=== PATIENT | male | born 1965 | race American Indian/Alaskan Native ===

== ENCOUNTER 2019-11-01 12:28 | Emergency (ER) | payer BC ==
[2019-11-01 12:36] VITALS: BP 133/88
--- NOTE | 2019-11-01 17:06 | Emergency Department Report ---
- General Chief complaint: Skin/Abscess/Foreign Body Stated complaint: BOIL Time Seen by Provider: 11/01/19 15:12 Source: patient Mode of arrival: Ambulatory Limitations: No Limitations - History of Present Illness Initial comments: 54-year-old -[place] male history of diabetes presents emergency department complaining of a 10-year history of fluctuating of cystic mass to the back which occasionally gets infected requires incision and drainage. Reports no fever, chills, sweats the area has become tender over the last few days ports no nausea or vomiting. States that he was seen at an urgent care and advised to follow-up with a surgeon so he came to the emergency department for further guidance. MD complaint: insect bite/sting, abscess/boil -: Gradual Tetanus Up to Date: yes Location: back Severity: mild Consistency: constant Improves with: none Worsens with: palpation Context: none Treatments Prior to Arrival: none - Related Data Previous Rx's Medication Instructions Recorded Last Taken Type Ketorolac [Toradol] 10 mg PO Q6H PRN #15 tablet 11/01/19 Unknown Rx Sulfamethoxazole/Trimethoprim 1 each PO BID #20 tablet 11/01/19 Unknown Rx [Bactrim Ds] Allergies Allergy/AdvReac Type Severity Reaction Status Date / Time Penicillins Allergy Unknown Verified 11/01/19 12:31 Abscess Boil HPI - HPI Chief Complaint: Skin/Abscess/Foreign Body Stated Complaint: BOIL Time Seen by Provider: 11/01/19 15:12 Home Medications: Previous Rx's Medication Instructions Recorded Last Taken Type Ketorolac [Toradol] 10 mg PO Q6H PRN #15 tablet 11/01/19 Unknown Rx Sulfamethoxazole/Trimethoprim 1 each PO BID #20 tablet 11/01/19 Unknown Rx [Bactrim Ds] Allergies/Adverse Reactions: Allergies Allergy/AdvReac Type Severity Reaction Status Date / Time Penicillins Allergy Unknown Verified 11/01/19 12:31 ED Review of Systems ROS: Stated complaint: BOIL Other details as noted in HPI ED Past Medical Hx - Past Medical History Hx Hypertension: Yes Hx Diabetes: Yes - Surgical History Additional Surgical History: FINGER - Social History Smoking Status: Never Smoker Substance Use Type: None - Medications Home Medications: Home Medications Medication Instructions Recorded Confirmed Last Taken Type Ketorolac [Toradol] 10 mg PO Q6H PRN #15 tablet 11/01/19 Unknown Rx Sulfamethoxazole/Trimethoprim 1 each PO BID #20 tablet 11/01/19 Unknown Rx [Bactrim Ds] ED Physical Exam - General Limitations: No Limitations General appearance: alert, in no apparent distress - Head Head exam: Present: atraumatic, normocephalic - Eye Eye exam: Present: normal appearance, PERRL, EOMI Pupils: Present: normal accommodation - ENT ENT exam: Present: normal exam, normal orophraynx, mucous membranes moist - Neck Neck exam: Present: normal inspection - Respiratory Respiratory exam: Present: normal lung sounds bilaterally. Absent: respiratory distress - Cardiovascular Cardiovascular Exam: Present: regular rate, normal rhythm. Absent: systolic murmur, diastolic murmur, rubs, gallop - GI/Abdominal GI/Abdominal exam: Present: soft, normal bowel sounds - Rectal Rectal exam: Present: deferred - Extremities Exam Extremities exam: Present: normal inspection - Back Exam Back exam: Present: normal inspection, tenderness. Absent: muscle spasm, paraspinal tenderness - Expanded Back Exam Expanded 1 - Infected inclusion cyst region large cystic area with palpation about 12 cm in diameter with redness and a local os significantly darkened in color and hard - Neurological Exam Neurological exam: Present: alert, oriented X3 - Psychiatric Psychiatric exam: Present: normal affect, normal mood - Skin Skin exam: Present: warm, dry, intact, normal color. Absent: rash ED Course Vital Signs 11/01/19 12:35 Temperature 97.8 F Pulse Rate 116 H Respiratory 18 Rate Blood Pressure 133/88 [Right] O2 Sat by Pulse 98 Oximetry Critical care attestation.: If time is entered above; I have spent that time in minutes in the direct care of this critically ill patient, excluding procedure time. ED Disposition Clinical Impression: Inclusion cyst Disposition: DC-01 TO HOME OR SELFCARE Is pt being admited?: No Does the pt Need Aspirin: No Condition: Stable Additional Instructions: Epidermal Inclusion Cyst Updated: Aug 29, 2017 Author: Michelle Butterfield MD, MA, FAAD; Chief Water Well Driller: Loco Brown MD Overview Background Epidermoid cysts represent the most common cutaneous cysts. While they may occur anywhere on the body, they occur most frequently on the face, scalp, neck, and trunk.[1] Historically, epidermoid cysts have been referred to by various terms, including follicular infundibular cysts, epidermal cysts, and epidermal inclusion cysts. The term epidermal inclusion cyst refers specifically to an epidermoid cyst that is the result of the implantation of epidermal elements in the dermis. Because most lesions originate from the follicular infundibulum, the more general term epidermoid cyst is favored. The term sebaceous cyst should be avoided because it implies that the cyst is of sebaceous origin. Finally, the term milia refers to very small, superficial epidermoid cysts. Epidermoid cysts are benign lesions; however, very rare cases of various associated malignancies have been reported.[2, 3, 4, 5, 6, 7, 8, 9, 10, 11, 12, 13] [facility] Pathophysiology Epidermoid cysts result from the proliferation of epidermal cells within a circumscribed space of the dermis. Analysis of their lipid pattern demonstrates similarities to the epidermis. In addition, epidermoid cysts express cytokeratins 1 and 10, which are constituents of the suprabasilar layers of the epidermis. The source of this epidermis is nearly always the infundibulum of the hair follicle, as evidenced by the observation that the lining of the 2 structures is identical.[13] Inflammation is mediated in part by the horny material contained in epidermoid cysts. Extracts of this material have been shown to be chemotactic for polymorphonucleocytes. Studies have suggested that human papillomavirus (HPV) and exposure to ultraviolet light (UV) may play a role in the formation of some epidermoid cysts, particularly verrucous cysts with coarse hypergranulosis.[14, 15, 16, 17, 18, 19, 20, 21, 22, 23, 24, 25] The manner in which carcinomas may arise within epidermoid cysts is unclear. In a series of epidermoid cysts with carcinoma, immunohistochemical results for HPV were negative, suggesting that HPV is not likely to play a role in the development in squamous cell carcinoma (SCC) in epidermoid cysts. Chronic irritation or repetitive trauma to the epithelial lining of the cyst has been suggested to play a role in malignant transformation; however, this relationship has not been established.[44] [facility] Epidemiology Race No racial predilection has been identified. Pigmentation of epidermoid cysts is common in individuals with dark skin. In a study of [place] patients with epidermoid cysts, 63% of the cysts contained melanin pigment.[26] Sex Epidermoid cysts are approximately twice as common in men as in women. Age Epidermoid cysts may occur at any age; however, they most commonly arise in the third and fourth decades of life. Small epidermoid cysts known as milia are common in the period. [facility] Prognosis Epidermoid cysts are usually asymptomatic; however, they may become inflamed or secondarily infected, resulting in swelling and tenderness. Rarely, malignancies, including basal cell carcinoma, Ventura disease, SCC (most common of these rarities), mycosis fungoides, and melanoma in situ, have developed in ep idermoid cysts.[13] [facility] Presentation History Epidermoid cysts are usually asymptomatic. Discharge of a foul-smelling cheeselike material may be described. Less frequently, the cysts can become inflamed or infected, resulting in pain and tenderness. In the uncommon event of malignancy, rapid growth, friability, and bleeding may be reported. [facility] Physical Examination Epidermoid cysts appear as [id number], firm, round nodules of variable size. A central pore or punctum may be present. Note the image below. Unusually large epidermoid cyst with a prominent p Unusually large epidermoid cyst with a prominent punctum on the back of a patient. (Ruler is in centimeters.) Reportedly, epidermoid cysts are most common (in descending order of frequency) on the face, trunk, neck, extremities, and scalp. Rare cases of epidermoid cysts occurring in bone, breast, and various intracranial locations have been reported.[33] Epidermoid cysts in the breast and genital area are not uncommon in the general population. The ocular and oral mucosae can also be affected and, cysts have been reported on the palpebral conjunctivae, lips, buccal mucosa, tongue, and uvula. Epidermoid cysts can manifest in various ways on the extremities. Epidermoid cysts on the distal portions of the digits may extend into the terminal phalanx. These lesions may produce changes in the nails such as pincer nails, erythema, edema, tenderness, and pain.[34] [facility] Causes Epidermoid cysts likely form by several mechanisms. They may result from the sequestration of epidermal rests during embryonic life, occlusion of the pilosebaceous unit, or traumatic or surgical implantation of epithelial elements. HPV infection, ultraviolet exposure, and eccrine duct occlusion may be additional factors in the development of palmoplantar epidermoid cysts.[27] HPV has also been identified in nonpalmoplantar epidermoid cysts. Congenital epidermoid cysts of the anterior fontanelle or those that are orogenital in location presumably result from sequestration or trapping of epidermal rests along embryonic fusion planes during development. Lip and lingual lesions may be related to aberrant fusion of the branchial arches, while genital lesions may result from improper closure of the genital folds. Any benign or malignant process affecting or growing near the pilosebaceous unit may lead to occlusion or impingement of the follicular ostia with subsequent formation of a cyst. Cysts with an acneiform distribution are likely the result of follicular occlusion. In elderly persons, accumulated sun damage can injure the pilosebaceous unit, causing abnormalities such as comedonal plugging and hypercornification, both of which can eventuate in cyst formation.[28] This condition is referred to as Favre-Racouchot syndrome. True epidermal inclusion cysts result from the implantation of epithelial elements in the dermis. Certain injuries, especially of the crushing type, have been associated with subungual or terminal phalanx epidermoid cysts. A crush injury sustained from slamming a car door on a digit is frequently reported. Any surgical procedure can theoretically result in epidermoid cysts. Reports describe the formation of multiple epidermoid cysts after rhinoplasty, breast augmentation, and liposuction.[29] The use of dermal grafts, myocutaneous grafts, and needle biopsies has also been associated with the formation of ep idermoid cysts. Certain hereditary syndromes are associated with epidermoid cysts. Such syndromes include Bhakta syndrome,[30] basal cell nevus syndrome,[3, 10, 25] and pachyonychia congenita.[31, 32] In addition, idiopathic scrotal calcinosis may actually represent an end stage of dystrophic calcification of epidermoid cysts. Note the image below. Multiple epidermoid cysts on the forehead of a pat Multiple epidermoid cysts on the forehead of a patient with Bhakta syndrome. [facility] DDx Differential Diagnoses Branchial Cleft Cyst Calcinosis Cutis Dermatologic Manifestations of Bhakta Syndrome Cutaneous Lipomas Dermoid Cyst Milia Pachyonychia Congenita Steatocystoma Multiplex Trichilemmal Cyst (Pilar Cyst) [facility] Workup Workup Laboratory Studies Laboratory studies are typically unnecessary; however, with recurrent infection or lack of response to antibiotics, a culture and sensitivity may be obtained. [facility] Imaging Studies If an epidermoid cyst is suspected in an unusual location, such as breast, bone, or intracranial locations, imaging with ultrasonography, radiography, CT sc anning, or MRI is appropriate. [facility] Other Tests Fine-needle aspiration has been used to help diagnose epidermoid cysts in unusual locations, such as the breast. Smears of aspirated material stained with Foster-Giemsa stain demonstrate nucleated keratinocytes and wavy keratin duanei al.[1] [facility] Histologic Findings Epidermoid cysts are lined with stratified squamous epithelium that contains a granular layer. Laminated keratin contents are noted inside the cyst. An inflammatory response may be present in cysts that have ruptured. Older cysts may exhibit calcification. Pilomatrical differentiation may be noted, especially in patients with Bhakta syndrome.[35] Note the images below. Cyst containing keratinous material (hematoxylin a Cyst containing keratinous material (hematoxylin and eosin, original magnification X1.6). Higher-magnification view of the cyst wall of the Higher-magnification view of the cyst wall of the cyst in Media File 3 demonstrates a true epidermis with a granular layer and adjacent laminated keratinous material (hematoxylin and eosin, original magnification X20). [facility] Treatment Medical Care Asymptomatic epidermoid cysts do not need to be treated. Intralesional injection with triamcinolone may hasten the resolution of inflammation. Oral antibiotics may occasionally be indicated. [facility] Surgical Care Epidermoid cysts may be removed via simple excision or incision with removal of the cyst and cyst wall though the surgical defect.[36] If the entire cyst wall is not removed, the lesion may recur. Excision with punch biopsy technique may be used if the size of the lesion permits.[37, 38] Minimal-incision surgery, with reduced scarring, has been reported.[39, 40] An intraoral approach has been used to minimize facial scarring.[45] Incision and drainage may be performed if a cyst is inflamed. Injection of triamcinolone into the tissue surrounding the inflamed cyst results in faster improvement in symptoms. This may facilitate the clearing of infection; however, it does not eradicate the cyst. [facility] Consultations Lesions located in atypical locations warrant appropriate consultation. [facility] Complications Complications are rare, but they can include infection, scarring from removal, and recurrence. Malignancies in epidermoid cysts are very rare. Referrals: BO LEONE MD [Staff Physician] - 3-5 Days JERAD SPEAR DO [Staff Physician] - 3-5 Days
== END 2019-11-01 17:18 | disposition home or self-care (01) ==
LOC: ED 12:28
DX: L72.0 Epidermal cyst (principal); I10 Essential (primary) hypertension; E11.9 Type 2 diabetes mellitus without complications; Z98.890 Other specified postprocedural states; Z79.899 Other long term (current) drug therapy; Z88.0 Allergy status to penicillin
CPT/HCPCS: 99282

== ENCOUNTER 2019-11-18 10:43 | Outpatient (CLI) | payer BC ==
[2019-11-18] MEDS ORDERED: LIDOCAINE (4%) 40 MG/ML TOPICAL SOLN 50 ML BOTTLE TP NR (10:44)
== END 2019-11-18 10:44 | disposition home or self-care (01) ==
LOC: WOUND 10:43
PROVIDERS: ATTEND Surgery
DX: T81.89XD Other complications of procedures, not elsewhere classified, subsequent encounter (principal); S21.201D Unspecified open wound of right back wall of thorax without penetration into thoracic cavity, subsequent encounter; J45.909 Unspecified asthma, uncomplicated; M10.9 Gout, unspecified; I10 Essential (primary) hypertension; F41.9 Anxiety disorder, unspecified; F32.9 Major depressive disorder, single episode, unspecified; Y83.8 Other surgical procedures as the cause of abnormal reaction of the patient, or of later complication, without mention of misadventure at the time of the procedure; X58.XXXD Exposure to other specified factors, subsequent encounter

== ENCOUNTER 2019-11-25 08:01 | Outpatient (CLI) | payer BC ==
[2019-11-25] MEDS ORDERED: LIDOCAINE (4%) 40 MG/ML TOPICAL SOLN 50 ML BOTTLE TP NR (08:12)
== END 2019-11-25 08:02 | disposition home or self-care (01) ==
LOC: WOUND 08:01
PROVIDERS: ATTEND Surgery
DX: T81.89XD Other complications of procedures, not elsewhere classified, subsequent encounter (principal); S21.201D Unspecified open wound of right back wall of thorax without penetration into thoracic cavity, subsequent encounter; J45.909 Unspecified asthma, uncomplicated; M10.9 Gout, unspecified; I10 Essential (primary) hypertension; F41.9 Anxiety disorder, unspecified; F32.9 Major depressive disorder, single episode, unspecified; X58.XXXD Exposure to other specified factors, subsequent encounter; Y83.8 Other surgical procedures as the cause of abnormal reaction of the patient, or of later complication, without mention of misadventure at the time of the procedure

== ENCOUNTER 2019-12-09 08:30 | Outpatient (CLI) | payer BC ==
[2019-12-09] MEDS ORDERED: SILVER NITRATE APPLICATOR 1 EA TP SCH (09:09)
[2019-12-09] MEDS ORDERED: LIDOCAINE (4%) 40 MG/ML TOPICAL SOLN 50 ML BOTTLE TP SCH (09:09)
== END 2019-12-09 08:31 | disposition home or self-care (01) ==
LOC: WOUND 08:30
PROVIDERS: ATTEND Surgery
DX: T81.89XD Other complications of procedures, not elsewhere classified, subsequent encounter (principal); S21.201D Unspecified open wound of right back wall of thorax without penetration into thoracic cavity, subsequent encounter; E11.9 Type 2 diabetes mellitus without complications; J45.909 Unspecified asthma, uncomplicated; M10.9 Gout, unspecified; I10 Essential (primary) hypertension; F41.9 Anxiety disorder, unspecified; F32.9 Major depressive disorder, single episode, unspecified; Z79.84 Long term (current) use of oral hypoglycemic drugs; X58.XXXD Exposure to other specified factors, subsequent encounter; Y83.8 Other surgical procedures as the cause of abnormal reaction of the patient, or of later complication, without mention of misadventure at the time of the procedure
CPT/HCPCS: 82962

== ENCOUNTER 2019-12-23 08:23 | Outpatient (CLI) | payer BC ==
[~2019-12-23 08:23] MED LIST: LIDOCAINE (4%) 40 MG/ML TOPICAL SOLN 50 ML BOTTLE TP ONE
== END 2019-12-23 08:24 | disposition home or self-care (01) ==
LOC: WOUND 08:23
PROVIDERS: ATTEND Surgery
DX: S21.201D Unspecified open wound of right back wall of thorax without penetration into thoracic cavity, subsequent encounter (principal); E11.628 Type 2 diabetes mellitus with other skin complications; J45.909 Unspecified asthma, uncomplicated; M10.9 Gout, unspecified; I10 Essential (primary) hypertension; F41.9 Anxiety disorder, unspecified; F32.9 Major depressive disorder, single episode, unspecified; Z79.84 Long term (current) use of oral hypoglycemic drugs; X58.XXXD Exposure to other specified factors, subsequent encounter
CPT/HCPCS: 82962; 99213; G0463